=== PATIENT | male | born 1940 | race Caucasian/White ===

== ENCOUNTER → 2018-02-13 10:17 | Outpatient (CLI) | payer MEDICARE, SELFPAY | PROVIDERS: Visit Provider Urology | DX: R97.20 Elevated prostate specific antigen [PSA] (principal) | CPT/HCPCS: 36415; 84153 ==

== ENCOUNTER → 2018-08-17 09:37 | Outpatient (CLI) | payer MEDICARE, SELFPAY ==
[2018-08-17 12:11] LABS: Prostate Specific Ag, Diagnost 8.21 ng/mL (0.0-4.0)
== END ==
PROVIDERS: Visit Provider Urology
DX: R97.20 Elevated prostate specific antigen [PSA] (principal)
CPT/HCPCS: 36415; 84153

== ENCOUNTER → 2018-08-27 14:54 | Outpatient (CLI) | payer MEDICARE, SELFPAY ==
--- NOTE | 2018-08-27 14:59 | XR_ITS ---
XR hip RT 2-3V w/pelvis HISTORY: ITS.REASON: RT HIP PAIN ORDERING PHYSICIAN: Elaine Eldridge PATIENT AGE: 77 years COMPARISON: None FINDINGS: No fracture or dislocation is evident. No significant degenerative change. No lytic or blastic change. Unremarkable soft tissues. There is an os acetabulum. There are minimal osteoarthritic changes in the left tibia. IMPRESSION: Small os acetabulum is nonspecific but can be seen with femoral acetabular impingement otherwise negative right hip
== END ==
PROVIDERS: PCP Family Medicine; Visit Provider Nurse Practitioner Family
DX: M25.551 Pain in right hip (principal)
CPT/HCPCS: 73502

== ENCOUNTER → 2018-11-16 08:22 | Outpatient (CLI) | payer MEDICARE, SELFPAY ==
[2018-11-16 10:24] LABS: Prostate Specific Ag Screen 9.5 ng/mL (0.0-4.0)
== END ==
PROVIDERS: Visit Provider Urology
DX: Z12.5 Encounter for screening for malignant neoplasm of prostate (principal); R97.20 Elevated prostate specific antigen [PSA]
CPT/HCPCS: 36415; G0103

== ENCOUNTER → 2019-05-17 08:11 | Outpatient (CLI) | payer MEDICARE, SELFPAY ==
[2019-05-17 10:50] LABS: Prostate Specific Ag, Diagnost 5.79 ng/mL (0.0-4.0)
== END ==
PROVIDERS: Visit Provider Urology
DX: R97.20 Elevated prostate specific antigen [PSA] (principal)
CPT/HCPCS: 36415; 84153

== ENCOUNTER → 2019-07-14 13:22 | Outpatient (CLI) | payer MEDICARE, SELFPAY ==
--- NOTE | 2019-07-14 13:26 | US_ITS ---
PROCEDURE: US EXTREMITY RT LIMITED CLINICAL INDICATION: MASS OF RT FINGER COMPARISON: No exams were available for comparison FINDINGS: Ultrasound performed of the right 2nd finger shows a heterogeneous subcutaneous mass measuring 19 x 6 by 18 mm. The mass is mild in the 2nd finger along the proximal phalanx. The ultrasound characteristics are nonspecific with heterogeneous echogenicity with increased echogenicity centrally. IMPRESSION: Unusual subcutaneous heterogeneous mass along the proximal phalanx of the 2nd finger. This does not represent a simple cyst and could be due to to underlying infection or even neoplasm Dictated by: Colin Manzo MD 07/22/2019 19:52 Electronically signed by Colin Manzo MD in [place] 07/22/2019 19:52
== END ==
PROVIDERS: PCP Family Medicine; Visit Provider Nurse Practitioner Family
DX: R22.31 Localized swelling, mass and lump, right upper limb (principal)
CPT/HCPCS: 76882

== ENCOUNTER → 2020-05-22 07:53 | Outpatient (CLI) | payer MEDICARE, SELFPAY ==
[2020-05-23 11:03] LABS: PSA, Free 1.12 ng/mL; Prostate Specific Ag 5.7 ng/mL (0.0-4.0)
== END ==
PROVIDERS: Visit Provider Urology
DX: R97.20 Elevated prostate specific antigen [PSA] (principal)
CPT/HCPCS: 36415; 84153; 84154

== ENCOUNTER → 2020-07-26 12:12 | Outpatient (CLI) | payer MEDICARE, SELFPAY | PROVIDERS: PCP Nurse Practitioner Family; Visit Provider Nurse Practitioner Family | DX: Z20.828 Contact with and (suspected) exposure to other viral communicable diseases (principal); U07.1 COVID-19 | CPT/HCPCS: U0003 ==

== ENCOUNTER → 2020-08-04 10:50 | Outpatient (CLI) | payer MEDICARE, SELFPAY ==
--- NOTE | 2020-08-04 11:05 | XR_ITS ---
PROCEDURE: XR CHEST CHP 1V CLINICAL HISTORY: COVID OUT PATIENT Shortness of air COMPARISON: CR CXR CHEST(2 VIEWS-NOT PORTABLE) from 01/22/[address] CHEST W/ CONTRAST from 02/01/2015 FINDINGS: The cardiomediastinal silhouette and pulmonary vascularity are within normal limits. Patchy infiltrate is present in the right upper lobe. Mild atelectasis or infiltrate noted in the right lower lobe. COPD changes. No acute bony abnormalities. IMPRESSION: COPD with patchy right upper and right lower lobe infiltrate. Dictated by: Colin Manzo MD 08/04/2020 14:29 Colin Manzo MD in [place] 08/04/2020 14:29
[2020-08-04 11:41] LABS: Basophils % 0.3 % (0.1-2.0); Eosinophils # 0.1 K/mm3 (0.0-0.4); Eosinophils % 0.9 % (0.1-12.0); Hematocrit 39.6 % (42.0-52.0); Hemoglobin 12.9 g/dL (14.1-18.0); Lymphocytes # 1.4 K/mm3 (0.7-4.5); Lymphocytes % 23.2 % (10-50); Mean Corpuscular HGB Conc 32.5 g/dL (31.8-35.4); Mean Corpuscular Hemoglobin 29.9 pg (27.0-31.2); Mean Corpuscular Volume 91.8 fl (80-94); Mean Platelet Volume 7.4 fl (7.4-10.4); Monocytes # 0.4 K/mm3 (0.1-1.0); Monocytes % 7.1 % (1.7-9.3); Neutrophils % 68.6 % (37.0-80.0); Platelet Count 247 K/mm3 (142-424); Red Blood Count 4.32 M/mm3 (4.60-6.20); Red Cell Distribution Width 11.9 % (11.5-17.5); White Blood Count 5.9 K/mm3 (4.8-10.8)
== END ==
PROVIDERS: Visit Provider Family Medicine
DX: R06.02 Shortness of breath (principal)
CPT/HCPCS: 36415; 71010; 85025

== ENCOUNTER → 2021-01-19 15:46 | Outpatient (CLI) | payer MEDICARE, SELFPAY ==
[2021-01-19 16:26] LABS: Basophils % 0.3 % (0.1-2.0); Eosinophils # 0.1 K/mm3 (0.0-0.4); Eosinophils % 1.3 % (0.1-12.0); Hematocrit 41.3 % (42.0-52.0); Hemoglobin 13.6 g/dL (14.1-18.0); Lymphocytes # 2.1 K/mm3 (0.7-4.5); Lymphocytes % 32.3 % (10-50); Mean Corpuscular HGB Conc 32.8 g/dL (31.8-35.4); Mean Corpuscular Hemoglobin 30.4 pg (27.0-31.2); Mean Corpuscular Volume 92.6 fl (80-94); Mean Platelet Volume 7.4 fl (7.4-10.4); Monocytes # 0.4 K/mm3 (0.1-1.0); Monocytes % 5.9 % (1.7-9.3); Neutrophils % 60.2 % (37.0-80.0); Platelet Count 173 K/mm3 (142-424); Red Blood Count 4.46 M/mm3 (4.60-6.20); Red Cell Distribution Width 13.1 % (11.5-17.5); White Blood Count 6.6 K/mm3 (4.8-10.8)
[2021-01-19 17:31] LABS: Alanine Aminotransferase 22 U/L (12-78); Albumin Level 4.2 g/dl (3.5-5.0); Albumin/Globulin Ratio 1.9 (1.1-1.8); Alkaline Phosphatase 54 U/L (38-126); Anion Gap 9.6 mEq/L (5-15); Aspartate Amino Transferase 34 U/L (17-59); Bilirubin,Total 0.6 mg/dl (0.2-1.3); Blood Urea Nitrogen 22 mg/dl (9-20); Carbon Dioxide 26 mmol/L (22.0-30.0); Chloride 106 mmol/L (98-107); Chol/HDL Ratio 2.9 (1-3.5); Cholesterol 138 mg/dl (140-200); Estimated Glomerular Filt Rate 53 ml/min (>60); GFR (African American) 65 ML/MIN (>60); Globulin 2.2 g/dL (1.3-3.2); Glucose 96 mg/dl (74-100); HDL Cholesterol 48 mg/dl (40-60); Potassium 4.6 mmoL/L (3.5-5.1); Sodium 137 mmol/L (136-145); Total Protein,Serum 6.4 g/dl (6.3-8.2); Triglycerides 88 mg/dl (30-150); VLDL Cholesterol 18 mg/dL (0-40)
[2021-01-19 17:42] LABS: Direct LDL Cholesterol 72.11 mg/dL (100-129)
== END ==
PROVIDERS: Visit Provider Internal Medicine Adolescent Medicine
DX: E78.49 Other hyperlipidemia (principal)
CPT/HCPCS: 36415; 80053; 80061; 85014; 85018; 85025

== ENCOUNTER → 2021-05-25 08:36 | Outpatient (CLI) | payer MEDICARE, SELFPAY ==
[2021-05-26 09:15] LABS: PSA, Free 1.04 ng/mL; Prostate Specific Ag 5.7 ng/mL (0.0-4.0)
== END ==
PROVIDERS: Visit Provider Urology
DX: R97.20 Elevated prostate specific antigen [PSA] (principal); R33.9 Retention of urine, unspecified
CPT/HCPCS: 36415; 84153; 84154

== ENCOUNTER → 2021-12-07 10:25 | Outpatient (CLI) | payer MEDICARE, SELFPAY ==
[2021-12-08 08:17] LABS: PSA, Free 1.24 ng/mL; Prostate Specific Ag 6.4 ng/mL (0.0-4.0)
== END ==
PROVIDERS: Visit Provider Urology
DX: N13.8 Other obstructive and reflux uropathy (principal); N40.1 Benign prostatic hyperplasia with lower urinary tract symptoms
CPT/HCPCS: 36415; 84153; 84154

== ENCOUNTER → 2022-03-22 09:54 | Outpatient (CLI) | payer MEDICARE, SELFPAY | PROVIDERS: PCP Internal Medicine Adolescent Medicine; Visit Provider Internal Medicine Adolescent Medicine | DX: R00.1 Bradycardia, unspecified (principal); I44.0 Atrioventricular block, first degree | CPT/HCPCS: 93225; 93226 ==

== ENCOUNTER → 2022-03-24 15:04 | Outpatient (CLI) | payer MEDICARE, SELFPAY ==
--- NOTE | 2022-03-24 | CA_ITS ---
APPROVED REPORT EXAM: Comprehensive 2D, Doppler, and color-flow Echocardiogram Fishery Biologist: Brittany Chawla CRT Ht: 6 ft 0 in Wt: 188lbs BSA: 2.08 BP: 144/80 mmHg Indications: Hyperlipidemia, Hypertension/HDD, bradycardia, 1st degree av block 2D Dimensions LVOT 2.11 cm (M/F) 1.5-2.5 LA Volume 53.80 mL LA Volume Index 25.90 mL/m2 (M/F) 16-34 M-Mode Dimensions RVDd 3.32 cm (0.9-2.6) LA Diam 4.06 cm (1.9-4.0) LVDd 4.46 cm (3.5-5.7) Ao Diam 4.20 cm (2.0-3.7) LVDs 3.15 cm (3.5-5.7) IVSd 1.78 cm (0.6-1.1) PWd 0.77 cm (0.6-1.1) EF (Teich) 56.50% FS 29.40% EDV (Teich) 90.50 mL TAPSE 1.87 (<1.7) ESV (Teich) 39.40 mL LV Diastology E Decel Time 147.00 (160-240 msec) E/A Ratio 1.63 MED E' 10.00 (< 7 cm/sec) MED A' 5.20 cm/s E'/MED E' Ratio 8.59 (>14) LAT E' 6.10 (<10 cm/sec) LAT A' 11.70 cm/s E/LAT E' Ratio 14.08 (>14) Aortic Valve AO Peak GR. 5.90 mmHg Mitral Valve MV E Max Felix. 86.00 (40-130 cm/s) MV A Velocity 53.00 (40-130 cm/s) E/A Ratio 1.63 MV Decel. Time 147.00 (160-240 ms) MV PHT 43.00 ms Pulmonary Valve PV Peak Velocity 171.00 (50-150 cm/s) Tricuspid Valve TR P. Velocity 321.00 cm/s RAP Estimate 10.00 mmHg RVSP 51.20 mmHg Left Ventricle Left atrium is mildly enlarged, left ventricle is normal size mild concentric left ventricular hypertrophy, estimated ejection fraction 55% with no regional wall motion abnormality, diastolic parameters are inconclusive. Right Ventricle Right atrium and right ventricle are mildly enlarged with normal contractility. Aortic Valve Aortic valve is minimally thickened and fibrosed there is no aortic stenosis or aortic insufficiency. Mitral Valve Mitral valve grossly normal, there is mild mitral regurgitation. Tricuspid Valve Tricuspid grossly normal, there is mild tricuspid regurgitation, tricuspid regurgitation jet velocity is inadequate for calculation of the right ventricular systolic pressure. Pulmonic Valve Pulmonic valve is poorly visualized. Great Vessels Aortic root is normal size. Inferior vena cava is normal size with normal inspiratory collapse. Pericardium No significant pericardial effusion noted. Conclusion 1. Biatrial enlargement, normal left ventricular size mild concentric left ventricular hypertrophy, estimated ejection fraction 55% with no regional wall motion abnormality, diastolic parameters are inconclusive. 2. Mildly enlarged right ventricle with normal contractility. 3. Mild mitral and tricuspid regurgitation. 4. No significant pericardial effusion. 5. Inferior vena cava normal size with normal spectral collapse. Electronically signed by : Sameer Mckeon MD 03/25/2022 13:24:59
== END ==
PROVIDERS: PCP Internal Medicine Adolescent Medicine; Visit Provider Internal Medicine Adolescent Medicine
DX: R00.1 Bradycardia, unspecified (principal); I44.0 Atrioventricular block, first degree; R07.89 Other chest pain
CPT/HCPCS: 93306

== ENCOUNTER → 2022-06-12 10:13 | Outpatient (CLI) | payer MEDICARE, SELFPAY ==
[2022-06-13 08:15] LABS: PSA, Free 1.17 ng/mL; Prostate Specific Ag 5.8 ng/mL (0.0-4.0)
== END ==
PROVIDERS: PCP Internal Medicine Adolescent Medicine; Visit Provider Urology
DX: R97.20 Elevated prostate specific antigen [PSA] (principal)
CPT/HCPCS: 36415; 84153; 84154

== ENCOUNTER → 2023-03-15 08:25 | Outpatient (CLI) | payer MEDICARE, SELFPAY ==
[2023-03-16 10:37] LABS: PSA, Free 1.29 ng/mL; Prostate Specific Ag 5.5 ng/mL (0.0-4.0)
== END ==
LOC: LAB 08:26
PROVIDERS: PCP Internal Medicine Adolescent Medicine; Visit Provider Urology
DX: R97.20 Elevated prostate specific antigen [PSA] (principal); Z12.5 Encounter for screening for malignant neoplasm of prostate
CPT/HCPCS: 36415; 84153; 84154

== ENCOUNTER 2023-07-17 10:57 | Emergency (ER) | payer MEDICARE, SELFPAY ==
[2023-07-17 11:05] VITALS: BP 147/96; PULSE 64; RESP 20; TEMP 36.6; O2SAT 98; BMI 24.9
--- NOTE | 2023-07-17 11:05 | PC.NURSE ---
Dr. Yanes at for patient eval; Family at BS
--- NOTE | 2023-07-17 11:08 | HMH.EDGENADL ---
Discharge Plan Disposition Patient Disposition: Home, Self-Care Prescriptions Prescriptions: No Action losartan 50 mg tablet 50 mg PO DAILY famotidine 40 mg tablet 40 mg PO tamsulosin 0.4 mg capsule,extended release 24hr 0.4 mg PO DAILY aspirin 81 mg tablet,delayed release (DR/EC) 81 mg PO DAILY lovastatin 10 mg tablet 10 mg PO QPM Referrals Follow up/Referrals: Diego Merchant MD [Primary Care Provider] - See instructions Activity Restrictions/Add. Instructions Additional Instructions/Restrictions: Please follow-up with your primary care provider. Please return to the emergency department if you develop any new or worsening symptoms or become concerned for your health. Please use nasal clamps as needed to hold pressure if you have another nosebleed. Clinical Impressions Clinical Impression: Epistaxis Instructions Patient Instructions: DI for Nosebleed Discharge ED Provider: Shaq Yanes General Adult HPI General Chief complaint: Epistaxis Stated complaint: NOSE BLEED Time Seen by Provider: 07/17/23 11:00 History of Present Illness HPI narrative: 82-year-old male, on aspirin daily, presents with episode of epistaxis earlier today. He reports that it started after he woke up. They held pressure at home and it resolved after approximately 45 minutes. Reports it was primarily from the right nare. Reports that he has had episode of epistaxis in the past and previously had cauterization with ENT. Denies any changes in medications recently. He has scheduled follow-up with his primary care provider next month. He denies being dizzy or weak, denies large volume blood loss. Related Data Home Medications Medication Instructions Recorded Confirmed aspirin 81 mg tablet,delayed 81 mg PO DAILY Blood thinner 02/19/18 06/15/22 release lovastatin 10 mg tablet 10 mg PO QPM Cholesterol 02/19/18 06/15/22 tamsulosin 0.4 mg capsule 0.4 mg PO DAILY prostate 02/19/18 06/15/22 losartan 50 mg tablet 50 mg PO DAILY 05/20/19 06/15/22 famotidine 40 mg tablet 40 mg PO 03/30/20 06/15/22 Allergies Allergy/AdvReac Type Severity Reaction Status Date / Time No Known Allergies Allergy Verified 06/15/22 10:14 [facility] Disclaimer: The information contained in this section may have been updated after the patient was seen, as this information can be updated by other users. Medical History (Updated 07/17/23 @ 11:12 by Shaq Yanes MD) BPH loc w urin obs/LUTS Social History Smoking Status: Never smoker alcohol intake: never substance use type: denies use current occupational status: retired Travel in the last 8 weeks: None household members: spouse housing: house caffeine: Yes ROS Obtained: Yes All systems reviewed & no additional complaints except as documented Physical Exam General General appearance: alert and in no apparent distress Head Head exam: atraumatic and normocephalic Eye Eye exam: Present normal appearance, PERRL and EOMI ENT ENT exam: Present normal oropharynx, normal external ear exam and other (Dried blood in the right nare) Neck Neck exam: Present normal inspection and full ROM Chest Chest inspection: Present normal inspection and symmetric chest wall rise; Absent tenderness Respiratory Respiratory exam: Present normal lung sounds bilaterally; Absent respiratory distress Cardiovascular Cardiovascular exam: Present regular rate and normal rhythm Abdominal Exam Abdominal exam: Present soft; Absent distention, tenderness or guarding Extremities Exam Extremities exam: Present normal inspection; Absent edema or joint swelling Back Exam Back exam: Present normal inspection; Absent tenderness Neurological Exam Neurological exam: Present alert and oriented X3; Absent motor sensory deficit Psychiatric Psychiatric exam: Present normal affect and normal mood Skin Skin exam: Present war
[2023-07-17 11:17] VITALS: BP 147/85; PULSE 62; RESP 20; TEMP 36.6; O2SAT 97
== END 2023-07-17 11:27 | disposition home or self-care (01) ==
LOC: ER 11:25
PROVIDERS: Emergency Provider Emergency Medicine; PCP Internal Medicine Adolescent Medicine
DX: R04.0 Epistaxis (principal)
CPT/HCPCS: 99282

== ENCOUNTER 2024-03-28 08:17 | Outpatient (CLI) | payer MEDICARE, SELFPAY ==
[2024-03-29 09:31] LABS: PSA, Free 1.22 ng/mL; Prostate Specific Ag 5.5 ng/mL (0.0-4.0)
== END 2024-03-28 23:59 | disposition home or self-care (01) ==
LOC: LAB 08:20
PROVIDERS: PCP Internal Medicine Adolescent Medicine; Visit Provider Urology
DX: R97.20 Elevated prostate specific antigen [PSA] (principal)
CPT/HCPCS: 36415; 84153; 84154

== ENCOUNTER 2025-02-23 14:15 | Outpatient (CLI) | payer MEDICARE, SELFPAY ==
[2025-02-23 15:19] LABS: Blood Urea Nitrogen 21 mg/dl (9-20); Estimated Glomerular Filt Rate 64 ml/min (>60); GFR (African American) 78 ML/MIN (>60)
[2025-02-24 08:13] LABS: PSA, Free 1.14 ng/mL; Prostate Specific Ag 4.6 ng/mL (0.0-4.0)
== END 2025-02-23 23:59 | disposition home or self-care (01) ==
LOC: LAB 14:15
PROVIDERS: PCP Internal Medicine Adolescent Medicine; Visit Provider Urology
DX: N40.1 Benign prostatic hyperplasia with lower urinary tract symptoms (principal); R97.20 Elevated prostate specific antigen [PSA]
CPT/HCPCS: 36415; 82565; 84153; 84154; 84520

== ENCOUNTER 2025-04-06 11:11 | Outpatient (CLI) | payer MEDICARE, SELFPAY ==
--- OUTSIDE RECORDS SUMMARY | 2025-04-06 11:13 | XMS_ITS | Clinical Summary ---
Author Organization [facility] Address [address] [place] [address] Phone Care Team Providers Care Crop Adjuster Name Role Phone Unavailable Primary Care Provider Unavailabl e Social History Tobacco Use Types Packs/Day Years Used Date Smoking Tobacco: Never Assessed Sex and Gender Information Value Date Recorded Sex Assigned at Not on file Legal Sex Male 11:27 PM EDT Gender Identity Not on file Sexual Orientation Not on file Plan of Treatment Health Maintenance Due Date Last Done Comments Annual Wellness Exam 1945 DTaP/TDaP/Td (1 - Tdap) 1961 Pneumococcal Vaccine 50+ (1 of 1 - PCV) 1992 Zoster (1 of 2) 1992 RSV or 60+ (1 - 1-d ose 75+ series) 2017 COVID-19 Vaccine (1 - 2023-2 5 season) 2024 Influenza Vaccine (#1) 2025 Hepatitis B Vaccine Aged Out No longe r eligible based on patient's age to complete this topic Meningococcal B Vaccine Aged Out No l onger eligible based on patient's age to complete this topic Insurance
[2025-04-06 11:52] LABS: Blood Urea Nitrogen 23 mg/dl (9-20); Creatinine,Serum 1.00 mg/dl (0.66-1.25); Estimated Glomerular Filt Rate 72 ml/min (>60); GFR (African American) 87 ML/MIN (>60)
[2025-04-06 15:13] LABS: Microscopic,Cath URINE MICROSCOPIC (MICROSCOPIC)
[2025-04-06 18:18] LABS: Appearance,Urine/Cath CLEAR (Clear); Bilirubin,Cath Negative (Negative); Blood, Urine/Cath 2+ (Negative); Color,Urine/Cath YELLOW (Yellow); Glucose,Urine/Cath (UA) Negative (Negative); Ketones,Urine/Cath Negative (Negative); Leukocyte Esterase,Cath Negative (Negative); Nitrate,Cath Negative (Negative); PH,Urine/Cath 6.0 (5.0-8.5); Protein,Urine/Cath Negative (Negative); Specific Gravity, Urine/Cath 1.015 (1.005-1.030); Urobilinogen,Cath 0.2 EU/dl (0.2)
[2025-04-06 18:41] LABS: Bacteria,Urine/Cath TRACE /lpf; RBC,Urine/Cath Occasional # /hpf (0-3)
== END 2025-04-06 23:59 | disposition home or self-care (01) ==
LOC: LAB 11:11
PROVIDERS: PCP Internal Medicine Adolescent Medicine; Visit Provider Urology
DX: R33.9 Retention of urine, unspecified (principal)
CPT/HCPCS: 36415; 81001; 82565; 84520; 87086

== ENCOUNTER 2025-05-08 07:39 | Day surgery (SDC) | payer MEDICARE, SELFPAY ==
[2025-05-07 14:56] VITALS: BMI 22.4
[2025-05-08 08:11] VITALS: BP 148/94; PULSE 55; RESP 18; TEMP 36.2; O2SAT 98; BMI 22.4
--- NOTE | 2025-05-08 08:26 | HMH.PROCNOTE ---
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 He was recently started on Proscar and is on Flomax at 0.8 mg. His PSA is 4.6 on 03/18 indicating an enlarged prostate. He is clinically doing better. I catheterized him for a residual today which is about 90 cc. Pre-op diagnosis: Bladder outlet obstruction Postop diagnosis: Bladder outlet obstruction Operative note: Patient was brought to the cystoscopy suite. He was prepped and draped in the standard fashion. I catheterized him for a residual urine of 3 ounces. The patient then underwent flexible cystoscopy after Xylocaine jelly was instilled in the urethra. The anterior urethra was unremarkable. From the level of the verumontanum the patient has grade 2 prostate obstruction. There is anterior lobe drop down as well as left and right lateral lobes touching in the mid-oline. This obstruction would be amenable to laser prostate surgery. The patient's bladder is somewhat pink in color throughout. There is no evidence of bladder stone tumor hemorrhage or infection. He has a minimum amount of trabeculation. The ureteral orifice ease are normal bilaterally. There is clear urine bilaterally. Patient tolerated procedure well. He can consider laser prostate surgery or continue the same treatment plans depending on his symptomatology in a couple of weeks.
[2025-05-08] MEDS: LIDOCAINE 2% UROJET 10ML 10 ML (08:31)
[2025-05-08] MEDS: 0.9 % SODIUM CHLORIDE 500 ML 25 ML IV (08:31)
[2025-05-08 08:35] VITALS: BP 144/90; PULSE 75; RESP 17; TEMP 36.3; O2SAT 98
[2025-05-08 11:36] LABS: Microscopic,Cath URINE MICROSCOPIC (MICROSCOPIC)
[2025-05-08 11:57] LABS: Appearance,Urine/Cath CLEAR (Clear); Bilirubin,Cath Negative (Negative); Blood, Urine/Cath 1+ (Negative); Color,Urine/Cath YELLOW (Yellow); Glucose,Urine/Cath (UA) Negative (Negative); Ketones,Urine/Cath Negative (Negative); Leukocyte Esterase,Cath Negative (Negative); Nitrate,Cath Negative (Negative); PH,Urine/Cath 6.0 (5.0-8.5); Protein,Urine/Cath Negative (Negative); Urobilinogen,Cath 0.2 EU/dl (0.2)
[2025-05-08 12:54] LABS: Specific Gravity, Urine/Cath 1.025 (1.005-1.030)
[2025-05-08 15:58] LABS: Bacteria,Urine/Cath 2+ /lpf
== END 2025-05-08 08:53 | disposition home or self-care (01) ==
PROVIDERS: PCP Internal Medicine Adolescent Medicine; Visit Provider Urology
PROC: 0TJB8ZZ Inspection of Bladder, Via Natural or Artificial Opening Endoscopic (ICD-10-PCS; CPT 52000; principal; 2025-05-08 08:45)
DX: N32.0 Bladder-neck obstruction (principal); N40.1 Benign prostatic hyperplasia with lower urinary tract symptoms; R33.8 Other retention of urine; K21.9 Gastro-esophageal reflux disease without esophagitis; E78.5 Hyperlipidemia, unspecified; I10 Essential (primary) hypertension; Z79.899 Other long term (current) drug therapy
CPT/HCPCS: 52000; 81001; 87086; J7040

== ENCOUNTER 2025-06-01 10:17 | Outpatient (CLI) | payer MEDICARE, SELFPAY ==
--- OUTSIDE RECORDS SUMMARY | 2025-06-01 10:20 | XMS_ITS | Clinical Summary ---
Author Organization [facility] Address [address] [place] [address] Phone Care Team Providers Care Woodworker Helper Name Role Phone Unavailable Primary Care Provider [...] COVID-19 Vaccine (1 - 2023-2 5 season) 2025 Influenza Vaccine (#1) 2025 Hepatitis B Vaccine Aged Out No longe r eligible based on patient's age to complete this topic Meningococcal B Vaccine Aged Out No l onger eligible based on patient's age to complete this topic Insurance
[2025-06-01 10:37] LABS: Microscopic, Urine URINE MICROSCOPIC (MICROSCOPIC)
[2025-06-01 10:48] LABS: Bilirubin,Urine Negative (Negative); Color,Urine YELLOW (Yellow); Glucose,Urine (UA) Negative (Negative); Ketones,Urine Negative (Negative); Leukocyte Esterase,Urine Negative (Negative); PH,Urine 5.5 (5.0-8.5); Protein,Urine Negative (Negative); Specific Gravity, Urine 1.020 (1.005-1.030); Urobilinogen,Urine 0.2 EU/dl (0.2)
[2025-06-01 11:01] LABS: Renal Epithelial Cells,Urine Occasional #/lpf (0); WBC,Urine Occasional #/hpf (0-3)
== END 2025-06-01 23:59 | disposition home or self-care (01) ==
LOC: LAB 10:19
PROVIDERS: PCP Internal Medicine Adolescent Medicine; Visit Provider Urology
DX: R33.9 Retention of urine, unspecified (principal)
CPT/HCPCS: 81001